=== PATIENT | male | born 1990 | race African-American/Black ===

== ENCOUNTER 2019-04-26 13:38 | Emergency (ER) | payer MEDICAID ==
[~2019-04-26] VITALS: Ht 170.2 cm; Wt 81.6 kg
[2019-04-26] MEDS ORDERED: SODIUM CHLORIDE 0.9% 1,000 ML IV ONE ×2 (14:52)
[2019-04-26 15:12] LABS: Basophils # (auto) 0 uL; Basophils % (auto) 0.3 % (0.0-2.0); Eosinophils # (auto) 0.1 uL; Hematocrit 40.8 % (41.0-53.0); Hemoglobin 13.9 g/dL (13.5-17.5); Lymphocytes # (auto) 1.5 uL; Lymphocytes % (auto) 23.4 % (10.0-50.0); Mean Corpuscular Hemoglobin 28.4 pg (28.0-32.0); Mean Corpuscular Hgb Conc. 34.1 g/dL (32.0-36.0); Mean Corpuscular Volume 83.2 fL (80.0-100.0); Monocytes # (auto) 0.4 uL; Monocytes % (auto) 5.6 % (0.0-12.0); Neutrophils # (auto) 4.5 uL; Neutrophils % (auto) 69.7 % (37.0-80.0); Platelet Count (auto) 208 10^3/uL (140-450); Red Blood Cells 4.91 10^6/uL (4.5-5.90); Red Cell Distribution Width 13.5 % (11.8-14.3); White Blood Cell 6.4 10^3/uL (4.4-10.8)
[2019-04-26 15:30] LABS: Albumin 4.3 g/dL (3.4-5.0); Anion Gap 7 (5-15); Blood Urea Nitrogen 12 mg/dL (7-18); Calcium 8.4 mg/dL (8.5-10.1); Carbon Dioxide 24 mmol/L (21-32); Chloride 106 mmol/L (98-107); Glucose 115 mg/dL (74-106); Potassium 3.7 mmol/L (3.5-5.1); Sodium 137 mmol/L (136-145)
[2019-04-26 15:35] LABS: Alanine Aminotransferase 18 U/L (16-61); Alkaline Phosphatase 83 U/L (45-117); Aspartate Aminotransferase 15 U/L (15-37); BUN/Creatinine Ratio 10.2; Bilirubin, Total 0.5 mg/dL (0.2-1.0); Creatine Kinase IFCC 175 U/L (39-308); GFR African American 95 mL/min; GFR Non-African American 78 mL/min; Total Protein 8.3 g/dL (6.4-8.2)
[2019-04-26 16:04] LABS: Urine Bacteria NONE SEEN /hpf (None Seen); Urine Blood Negative /uL (Negative); Urine Mucus FEW (None Seen); Urine Specific Gravity 1.011 (1.001-1.035); Urine WBC 1 /hpf (0 - 3)
[2019-04-26 18:00] VITALS: BP 121/67
== END 2019-04-26 18:14 | disposition home or self-care (01) ==
LOC: ER 13:48
DX: T67.5XXA Heat exhaustion, unspecified, initial encounter (principal); F12.10 Cannabis abuse, uncomplicated
CPT/HCPCS: 36415; 80053; 81001; 82550; 82553; 84484; 85025

== ENCOUNTER 2019-05-05 13:43 | Emergency (ER) | payer MEDICAID ==
[~2019-05-05] VITALS: Ht 172.7 cm; Wt 88.5 kg
[2019-05-05 15:11] LABS: Urine WBC None Seen /hpf (0 - 3)
[2019-05-05] MEDS ORDERED: HYDROcodone-ACET 5/325MG TAB PO ONE (15:30)
[2019-05-05 15:44] LABS: Alcohol, Urine < 3.0 mg/dL (0-5); Amphetamine Screen, Urine NEGATIVE (NEGATIVE); Barbiturate Scree,Urine NEGATIVE (NEGATIVE); Benzodiazephine Screen, Urine NEGATIVE (NEGATIVE); Cocaine Screen, Urine NEGATIVE (NEGATIVE); Opiate Scree,Urine NEGATIVE (NEGATIVE); Phencyclidine Screen, Urine NEGATIVE (NEGATIVE)
[2019-05-05 15:52] LABS: Cannabinoid Screen, Urine POSITIVE (NEGATIVE)
[2019-05-05 15:53] LABS: Urine Bacteria NONE SEEN /hpf (None Seen); Urine Blood Negative /uL (Negative)
[2019-05-05 16:28] LABS: Basophils # (auto) 0 uL; Basophils % (auto) 0.2 % (0.0-2.0); Eosinophils # (auto) 0.1 uL; Eosinophils % (auto) 0.7 % (0.0-7.0); Hematocrit 42.7 % (41.0-53.0); Hemoglobin 14.3 g/dL (13.5-17.5); Lymphocytes # (auto) 1.1 uL; Lymphocytes % (auto) 14.2 % (10.0-50.0); Mean Corpuscular Hemoglobin 27.8 pg (28.0-32.0); Mean Corpuscular Hgb Conc. 33.6 g/dL (32.0-36.0); Mean Corpuscular Volume 82.9 fL (80.0-100.0); Monocytes # (auto) 0.6 uL; Monocytes % (auto) 7.1 % (0.0-12.0); Neutrophils # (auto) 6.2 uL; Neutrophils % (auto) 77.8 % (37.0-80.0); Nucleated Red Blood Cells % 0.1 %; Platelet Count (auto) 229 10^3/uL (140-450); Red Blood Cells 5.15 10^6/uL (4.5-5.90); Red Cell Distribution Width 13.3 % (11.8-14.3); White Blood Cell 7.9 10^3/uL (4.4-10.8)
[2019-05-05 16:45] LABS: Albumin 4.5 g/dL (3.4-5.0); Calcium 9.4 mg/dL (8.5-10.1); Potassium 3.8 mmol/L (3.5-5.1)
[2019-05-05 16:49] LABS: Bilirubin, Total 0.4 mg/dL (0.2-1.0); Total Protein 9.3 g/dL (6.4-8.2)
[2019-05-05 18:13] VITALS: BP 142/84
[2019-05-05] MEDS ORDERED: KETOROLAC TROMETH 60MG/2ML VIAL IM ONE (18:15)
== END 2019-05-05 19:40 | disposition home or self-care (01) ==
LOC: ER 13:43
DX: J32.9 Chronic sinusitis, unspecified (principal); F41.9 Anxiety disorder, unspecified; R51 Headache
CPT/HCPCS: 36415; 70450; 80053; 80307; 81001; 82962; 85025; 96372; 99284; J1885

== ENCOUNTER 2019-05-07 03:50 | Emergency (ER) | payer MEDICAID ==
[~2019-05-07] VITALS: Ht 172.7 cm; Wt 86.2 kg
[2019-05-07] MEDS ORDERED: IOHEXOL 300 MG/ML 100ML BOTTLE IJ ONE (04:15)
[2019-05-07 04:58] LABS: Basophils # (auto) 0 uL; Basophils % (auto) 0.2 % (0.0-2.0); Eosinophils # (auto) 0 uL; Eosinophils % (auto) 0.1 % (0.0-7.0); Hematocrit 40.7 % (41.0-53.0); Lymphocytes # (auto) 0.9 uL; Lymphocytes % (auto) 9.8 % (10.0-50.0); Mean Corpuscular Hgb Conc. 34.4 g/dL (32.0-36.0); Mean Corpuscular Volume 81.2 fL (80.0-100.0); Monocytes # (auto) 0.5 uL; Neutrophils # (auto) 7.9 uL; Neutrophils % (auto) 84.9 % (37.0-80.0); Platelet Count (auto) 236 10^3/uL (140-450); Red Blood Cells 5.01 10^6/uL (4.5-5.90); Red Cell Distribution Width 13.4 % (11.8-14.3); White Blood Cell 9.3 10^3/uL (4.4-10.8)
[2019-05-07 05:10] LABS: Potassium 3.9 mmol/L (3.5-5.1)
[2019-05-07 05:13] LABS: INR 1.06 (0.9-1.15)
[2019-05-07 05:16] LABS: Albumin 4.2 g/dL (3.4-5.0); BUN/Creatinine Ratio 6.6; Bilirubin, Total 0.5 mg/dL (0.2-1.0); Calcium 9.5 mg/dL (8.5-10.1)
[2019-05-07 05:49] LABS: Urine WBC None Seen /hpf (0 - 3)
[2019-05-07 06:19] LABS: Urine Bacteria NONE SEEN /hpf (None Seen); Urine Blood Negative /uL (Negative); Urine Mucus FEW (None Seen); Urine Specific Gravity 1.021 (1.001-1.035)
[2019-05-07] MEDS ORDERED: MORPHINE SULFATE 4 MG/ML SYR/VIAL IV ONE (07:00)
[2019-05-07] MEDS ORDERED: ONDANSETRON HCL 4 MG/2 ML VIAL IV ONE ×2 (07:00→08:30)
[2019-05-07] MEDS ORDERED: cefTRIAXone 1GM/50ML D5W 50 ML IV ONE (07:00)
[2019-05-07] MEDS ORDERED: SODIUM CHLORIDE 0.9% 1,000 ML IV ONE (07:00)
[2019-05-07] MEDS ORDERED: HYDROmorphone HCL 2 MG/ML VL IV ONE (08:30)
[2019-05-07 09:15] VITALS: BP 120/58
== END 2019-05-07 09:34 | disposition home or self-care (01) ==
LOC: ER 03:52
DX: J01.90 Acute sinusitis, unspecified (principal); R11.2 Nausea with vomiting, unspecified; R51 Headache
CPT/HCPCS: 36415; 74177; 80053; 81001; 85025; 85610; 85730; 87804; 96365; 96375; 96376; 99284; J0696; J1170; J2270; J2405; J7030; Q9967